=== PATIENT | female | born 1990 | race Caucasian/White ===

== ENCOUNTER 2018-06-23 07:26 | Emergency (ER) | payer MEDICAID, SELFPAY ==
[2018-06-23 07:26] VITALS: BP 149/65; PULSE 84; RESP 18; TEMP 37.1; O2SAT 99; BMI 21.5
--- NOTE | 2018-06-23 07:41 | ED.DCSUM_ITS ---
- ER Visit Summary Date of Service: 06/23/18 Chief Complaint: Right flank pain History of Present Illness: The patient is a 27 F with a 2-day history of right lower quadrant pain that wraps into the right lower back. She reports nausea and vomiting. She has not noted fever or chills. She does report some difficulty urinating but does not have dysuria or hematuria. Patient's last menstrual cycle was approximately 2 weeks ago. She denies history of ovarian cyst. Physical Examination: Vital signs unremarkable. Patient sitting upright in bed no acute distress. Head neck examination is unremarkable. Heart is regular rate and rhythm. Lung sounds are clear. Abdomen is soft with right lower quadrant tenderness. There is no guarding or rebound at this time. Hypoactive bowel sounds are present. Back examination was no true CVA tenderness but she does have reproducible tenderness in the right lower lumbar paraspinal muscles. No skin rashes noted. Test Results: CBC is unremarkable. Chemistry studies reveal potassium 3.3. Creatinine is 1.22. Urinalysis shows 50 ketones. 2+ bacteria is noted at 0-5 whites and [address] re[address] test is negative. CT abdomen pelvis with contrast was obtained that shows a 4.8 mm stone in the distal right ureter at the UVJ. Mild to moderate right hydronephrosis is noted. Emergency Department Course and Treatment: Patient was given a total 2 doses of morphine in the emergency room along with Zofran. After completion of CT scan a dose of Toradol is given. She is given 40 mEq of potassium chloride orally. Repeat evaluation she is resting comfortably. Test results are discussed with her. She will be given prescription for analgesics at home and referred to Dr. Jeffers for follow-up if needed. Treatment Plan: [] Disposition: Discharge Impression: Right ureterolithiasis This note was generated with [employer] dictation software. It may contain incorrect words, spelling, and punctuation that were not noted in review of the chart prior to signing ED Disposition - Plan for ED Patient: Chief Complaint: Flank Pain Referrals: Care Physician,No Primary [NON-STAFF] -
[2018-06-23] MEDS: Morphine 4 MG/ML Syringe IV ×2 (07:56→11:01)
[2018-06-23] MEDS: 0.9% Normal Saline 1,000 ML 150 ML IV (07:56)
[2018-06-23] MEDS: Ondansetron 4 MG/2 ML Vial IV ×2 (07:57→11:01)
[2018-06-23 08:07] LABS: Mucous, Urine 0 SEEN /hpf (<or=2+); Red Blood Cells-Urine 0 SEEN /hpf (0-5)
[2018-06-23 08:09] LABS: Absolute Lymphocyte Count 0.69 X10^3/ul (0.83-4.51); Absolute Neutrophil Count 5.8 X10^3/uL (2.0-7.7); Basophil# 0.01 X10^3/uL; Basophil% 0.1 % (0-1); Hemoglobin 13.7 g/dl (12.0-15.0); Lymphocyte # 0.69 X10^3/ul (4.0); Lymphocyte % 10.1 % (19-41); Mean Corp Hgb Conc 33.4 g/gl (32-36); Mean Corpuscular Hgb 29.2 pg (27.0-32.0); Mean Corpuscular Volume 87.4 fL (81-99); Mean Platelet Vol. 10.3 fl (6.2-12.0); Monocyte# 0.39 X10^3/uL; Monocyte% 5.7 % (0-10); Neutrophil # 5.77 X10^3/uL (2.7-7.7); Neutrophil % 84.1 % (47-70); POSITIVE COUNT NO; POSITIVE DIFFERENTIAL NO; POSITIVE MORPHOLOGY NO; Platelet Count 179 K/mm3 (150-450); RBC Distribution Width CV 13.1 % (11.6-14.6); Red Blood Count 4.69 M/mm3 (4.2-5.4); White Blood Count 6.9 K/mm3 (4.4-11.0)
[2018-06-23 08:09] LABS: Color, Urine Yellow (Yellow); Glucose, Dipstick Normal (Normal); Ketone-Dipstick 50 mg/dl (Negative); Leukocyte Esterase-Dipstick 25 /ul (Negative); Nitrite-Dipstick Negative (Negative); Occult Blood-Urine Negative /ul (Negative); Protein-Dipstick 30 mg/dl (Negative); Urine Bilirubin Dipstick Negative (Negative); Urine Clarity Cloudy (Clear); Urine Urobilinogen Normal (Normal)
[2018-06-23 08:15] LABS: Amorphous Sediment 2+; Bacteria 2+ /hpf (None Seen); Squamous Epithelial Cells - UA 5-10 SEEN /hpf (5-10); White Blood Cells 0-5 SEEN /hpf (0-5)
[2018-06-23 08:22] LABS: Anion Gap 9 (5-15); BUN 18 mg/dL (7-18); BUN/Creat Ratio 14.8 RATIO (10-20); Calcium,Total 9.1 mg/dL (8.5-10.1); Chloride 106 mmol/L (98-107); Creatinine, Serum 1.22 mg/dL (0.55-1.02); EST Glomerular Filtration Rate 56 mL/min (>60); Est Glom Filt Rate - Afr Amer 68 mL/min (>60); Glucose 107 mg/dL (74-106); Potassium 3.3 mmol/L (3.5-5.1); Sodium Level 141 mmol/L (136-145)
--- NOTE | 2018-06-23 08:23 | CT_ITS ---
STUDY: CT ABDOMEN AND PELVIS WITH CONTRAST REASON FOR EXAM: Female, 27 years old. Flank pain and nausea RADIATION DOSAGE (If Supplied By Facility): CTDIvol = ( 12.33 ) mGy, DLP = ( 665.65 ) mGycm TECHNIQUE: Transaxial images were obtained from the dome of the diaphragm to the symphysis pubis without oral contrast. 100ml ml of Isovue 300 contrast was administered. Limited Sagittal and coronal images were reconstructed. Individualized dose optimization techniques were used for this CT. COMPARISON: None. FINDINGS: The visualized lung bases are unremarkable. The visualized portions of the heart are within normal limits. Normal liver. Normal gallbladder and extrahepatic biliary system. Normal spleen. Normal pancreas. Normal bilateral adrenal glands. There is a distended appearance of the right renal pelvis and calyces. There is distention of the right ureter. The study is limited by presence of oral contrast. There is a stone in the distal right ureter allowing for the presence of contrast that measures 4.8 mm. Normal left kidney. Normal visualized stomach. There are distended loops of small bowel present best appreciated on image #21 the coronal views. Normal colon. There is non-visualization of the appendix. Normal abdominal aorta. Normal inferior vena cava. Normal retroperitoneum. Normal urinary bladder. Normal visualized uterus. Normal abdominal wall. There is a pars defect at L5-S1 with slight anterolisthesis. There is mild neural foramina narrowing no significant central stenosis. CT/Abdomen/Pelvis WITH Contrast IMPRESSION: There is a 4.8 mm stone in the distal right ureter at ureterovesicular junction. There is mild to moderate right hydronephrosis and right renal edema. Findings most consistent with a small bowel ileus. Cannot entirely exclude enteritis. Pars defect L5-S1 with slight anterolisthesis. Sagittal coronal reformatted images are incomplete and nondiagnostic of the pelvis. Electronically Signed: Cara Lee MD at 11:07 EDT Tel , Service support ,
[2018-06-23 08:27] LABS: Pregnancy, Serum, hCG Quali. NEGATIVE Negative (0-9 Nonpreg)
[2018-06-23] MEDS: 0.9% Normal Saline 1,000 ML 999 ML IV (08:56)
[2018-06-23 11:00] VITALS: BP 116/72
--- NOTE | 2018-06-23 12:08 | ED.DEP ---
ED Disposition - Plan for ED Patient: Disposition: Home or Assisted Living Chief Complaint: Flank Pain Instructions: ED Stone Renal W Colic Prescriptions: Ondansetron [Zofran Odt] 4 mg PO Q8H PRN PRN #10 tablet PRN Reason: Nausea Hydrocodone/Acetaminophen [[place] 5-325 Tablet] 1 - 2 each PO 4X/DAY PRN PRN 5 Days #20 tablet PRN Reason: Pain Ibuprofen 600 mg PO TID PRN PRN #20 tablet PRN Reason: Pain Referrals: Stiven Jeffers MD [STAFF PHYSICIAN] - As Needed
[2018-06-23] MEDS: Ketorolac 30 MG/ML Syringe IV (12:16)
[2018-06-23 12:18] VITALS: BP 116/72; PULSE 76; RESP 14
[2018-06-23 12:20] VITALS: BP 116/72; PULSE 83; PULSE 85; RESP 16; O2SAT 98
== END 2018-06-23 12:42 | disposition home or self-care (01) ==
PROVIDERS: Emergency Provider Emergency Medicine
DX: N13.2 Hydronephrosis with renal and ureteral calculous obstruction (principal); Z72.0 Tobacco use
CPT/HCPCS: 74177; 80048; 81001; 84703; 85025; 96361; 96374; 96375; 96376; 99285; J7030; Q9967; J2405